=== PATIENT | male | born 1995 | race Two or more races ===

== ENCOUNTER 2021-03-03 12:19 | Emergency (ER) | payer MEDICAID ==
[~2021-03-03] VITALS: Ht 193 cm; Wt 113.4 kg
[~2021-03-03 12:19] MED LIST: IBUP400T22 PO
[2021-03-03 15:42] VITALS: BP 111/72
[2021-03-03] MEDS ORDERED: SODIUM CHLORIDE 0.9% 1,000 ML IV ONE (16:00)
[2021-03-03] MEDS ORDERED: cefTRIAXone 1GM/50ML D5W 50 ML IV ONE (16:00)
[2021-03-03] MEDS ORDERED: KETOROLAC TROMETH 30 MG/ML 1ML VIAL IV ONE (16:00)
[2021-03-03] MEDS ORDERED: AMOX500T86 PO (17:21)
[2021-03-03] MEDS ORDERED: ONDA-144 PO (17:21)
[2021-03-03] MEDS ORDERED: PROM1SOL4 PO (17:21)
== END 2021-03-03 17:33 | disposition home or self-care (01) ==
LOC: EDBD 12:19 → ER 12:19
DX: U07.1 COVID-19 (principal); K29.00 Acute gastritis without bleeding; J20.9 Acute bronchitis, unspecified; Z79.2 Long term (current) use of antibiotics; Z79.1 Long term (current) use of non-steroidal anti-inflammatories (NSAID); Z79.899 Other long term (current) drug therapy; Z88.8 Allergy status to other drugs, medicaments and biological substances
CPT/HCPCS: 36415; 71045; 74176; 87426; 96365; 96375; 99285; J0696; J1885; J7030